=== PATIENT | female | born 1960 | race Caucasian/White ===

== ENCOUNTER → 2021-09-19 | Outpatient (CLI) | payer OTHER ==
--- NOTE | 2021-09-19 17:11 | RAD ---
EXAM: Cervical spine, 3 views. HISTORY: Pain. COMPARISON: None. FINDINGS: 3 views of cervical spine are obtained. There is slight anterolisthesis of C4 on C5, retrol isthesis of C5 on C6 and anterolisthesis of C7 on T1 there is degenerative endplate remodeling with d isc space narrowing and osteophytosis primarily at C4-C5 and C5-C6. There is multilevel facet arthrop athy. There is no acute fracture. IMPRESSION: 1. Multilevel degenerative change, described above. This is most significant at C5-C6, and to a lesse r extent, C4-C5. 2. No acute osseous finding. Electronically signed by: Alycia Rodriguez MD (09/19/2021 5:09 PM) [id number]
== END ==
LOC: RAD 15:05
PROVIDERS: ATTEND Anesthesiology Pain Medicine
DX: Z02.71 Encounter for disability determination (principal); M47.812 Spondylosis without myelopathy or radiculopathy, cervical region; M48.8X2 Other specified spondylopathies, cervical region; M43.12 Spondylolisthesis, cervical region; M48.02 Spinal stenosis, cervical region
CPT/HCPCS: 72040